=== PATIENT | female | born 1990 | race Caucasian/White ===

== ENCOUNTER 2016-07-13 17:55 | Emergency (ER) | payer BC ==
[~2016-07-13] VITALS: Ht 167.6 cm; Wt 126.1 kg
[~2016-07-13 17:55] MED LIST: CLONAZEPAM0.5 MG PO; CYCLOBENZAPRINE 10MG PO; HYDROCODON-ACE1 EAC7 PO; NAPROSYN500 MG PO; PAROXETINE HCL20 MG PO; PERCOCET 5/31 TABLET PO; PROZAC20 MG PO; TORADOL10 MG PO; VALIUM5 MG PO; VICODIN,LORT1 TABLET PO; ZOFRAN ODT4 MG PO
[2016-07-13] MEDS ORDERED: MEDROL DOSEPAK4 MG PO (19:30)
[2016-07-13 19:40] VITALS: BP 164/97
== END 2016-07-13 19:45 | disposition home or self-care (01) ==
LOC: EME 17:55
DX: M54.16 Radiculopathy, lumbar region (principal)
CPT/HCPCS: 72100; 99281; 99284